=== PATIENT | female | born 1985 | race Caucasian/White ===

== ENCOUNTER 2019-09-02 13:26 | Emergency (ER) | payer OTHER ==
[2019-09-02 13:38] LABS: ABSOLUTE BASOPHILS # (AUTO) 0.1 10^3/uL (0.0-0.2); ABSOLUTE EOSINOPHILS # (AUTO) 0.1 10^3/uL (0.0-0.6); ABSOLUTE LYMPHOCYTES (AUTO) 2.2 10^3/uL (0.5-4.7); ABSOLUTE MONOCYTES (AUTO) 0.4 10^3/uL (0.1-1.4); ABSOLUTE NEUT (AUTO) 4.5 10^3/uL (1.7-8.2); BASOPHILS % (AUTO) 1.5 % (0-2); EOSINOPHILS % (AUTO) 1.6 % (0-6); HEMATOCRIT 44.3 % (36.0-47.0); HEMOGLOBIN 15.5 g/dL (12.0-15.5); LYMPHOCYTES % (AUTO) 30.1 % (13-45); MEAN CORPUSCULAR HEMOGLOBIN 32.8 pg (27.0-33.4); MEAN CORPUSCULAR VOLUME 94 fl (80-97); MONOCYTES % (AUTO) 5.8 % (3-13); PLATELET COUNT 319 10^3/uL (150-450); RED BLOOD COUNT 4.72 10^6/uL (3.72-5.28); RED CELL DISTRIBUTION WIDTH 13.2 % (11.5-14.0); TOTAL CELLS COUNTED % (AUTO) 100 %; WHITE BLOOD COUNT 7.4 10^3/uL (4.0-10.5)
[2019-09-02 13:55] LABS: ALBUMIN 5.2 g/dL (3.5-5.0); ALCOHOL 234 mg/dL (NONE DETECTED); ALKALINE PHOSPHATASE 66 U/L (38-126); ANION GAP 11 (5-19); ASPARTATE AMINO TRANSFERASE 30 U/L (14-36); BILIRUBIN,DIRECT 0.2 mg/dL (0.0-0.4); BILIRUBIN,TOTAL 0.3 mg/dL (0.2-1.3); BLOOD UREA NITROGEN 7 mg/dL (7-20); CALCIUM 9.3 mg/dL (8.4-10.2); CARBON DIOXIDE 29 mmol/L (22-30); CHLORIDE 99 mmol/L (98-107); GLUCOSE 141 mg/dL (75-110); POTASSIUM 4.2 mmol/L (3.6-5.0); TOTAL PROTEIN 8.7 g/dL (6.3-8.2)
[2019-09-02 14:00] LABS: ACETAMINOPHEN < 10 ug/mL (10-30); SALICYLATE < 1.0 mg/dL (2.0-20.0)
--- NOTE | 2019-09-02 14:00 | ER Document Report ---
ED General - General Chief Complaint: Overdose Stated Complaint: POSSIBLE OVERDOSE Time Seen by Provider: 09/02/19 13:34 Notes: 34 year old female brought in by EMS for overdose on Lexapro. Patient states she has had a couple of bad days and just felt completely overwhelmed today and wanted to sleep. She took 2 Lexapro in front of her , who called EMS and insisted that it was a overdose and EMS agreed. Patient states that she was angry that she was told this was an overdose, states she and her were arguing and then she became frustrated so she "tipped the bottle back and just took several pills." Patient states that she thinks she took 6 or 7, states her made her spit out most of them. Patient states that at most she took 9 pills of 10 mg of Lexapro a piece total. Complains of mild nausea otherwise has no other complaints. Patient was switched from Zoloft to Lexapro approximately 2 weeks ago, states s he felt like it was working well until 2 to 3 days ago when she did not feel like it was working anymore. She used to see a counselor, but stopped seeing one in February when they were switched away from the business. Patient also states that she has never had a suicide attempt before. - Related Data Allergies/Adverse Reactions: No Known Allergies Allergy (Verified 09/02/19 14:34) Past Medical History - General Information source: Patient - Social History Smoking Status: Current Every Day Smoker Frequency of alcohol use: Rare Drug Abuse: None Family History: Reviewed & Not Pertinent Review of Systems - Review of Systems Constitutional: No symptoms reported Gastrointestinal: See HPI, Nausea Neurological/Psychological: See HPI, Depression, Suicidal ideation -: Yes All other systems reviewed and negative Physical Exam - Vital signs Vitals: Temp Resp BP Pulse Ox 98.6 F 22 H 143/91 H 93 09/02/19 13:26 09/02/19 13:26 09/02/19 13:26 09/02/19 13:26 Interpretation: Hypertensive - Notes Notes: Poison control advises typical overdose care including 4-hour acetaminophen level, check a salicylate level as well as alcohol level, check urine drug screen and check an EKG. Warned that this could cause seizures, if so treat with benzos. Advises watching for 6 hours unless she took more than 300 mg. Course - Re-evaluation Re-evalutation: 09/02/19 16:22 CBC unremarkable, CMP shows glucose at 141 but this is nonfasting, test is negative, urinalysis shows small blood, 1 RBC, no signs of infection, this is not significant, initial salicylate and acetaminophen levels are undetectable, urine drug screen is negative, alcohol level is 234, EKG does not have any ischemic changes or concerning delays. Patient's provided some additional concerning information that makes behavioral health and me concerned that this patient is high risk. Patient will be made a full involuntary commitment. Repeat acetaminophen level will be checked at the 4-hour italo. Repeat EKG will be checked at the 6-hour italo. So long as this is all unchanged patient will be medically cleared at that point. 09/02/19 18:04 Repeat EKG does not show any progressive prolongation of the QT, acetaminophen level is normal. Patient is medically cleared. - Vital Signs Vital signs: Temp Pulse Resp BP Pulse Ox 98.6 F 22 H 133/89 H 96 09/02/19 13:26 09/02/19 17:00 09/02/19 17:00 09/02/19 17:00 - Laboratory Result Diagrams: 09/02/19 12:55 09/02/19 12:55 Laboratory results interpreted by me: 09/02/19 09/02/19 09/02/19 12:55 13:55 16:52 Glucose 141 H Total Protein 8.7 H Albumin 5.2 H Urine Blood SMALL H Salicylates < 1.0 L Acetaminophen < 10 L < 10 L - EKG Interpretation by Me Additional EKG results interpreted by me: 09/02/19 14:00 EKG shows sinus rhythm at a rate of 86, borderline left axis deviation, normal intervals, no QT prolongation, no ST segment elevations or depressions, no T wave inversions per my interpretation. 09/02/19 18:04 Repeat EKG shows sinus rhythm at a rate of 90, borderline left axis deviation, no ST segment elevation or depression, no T wave inversions normal intervals, no QT prolongation per my interpretation. Discharge - Discharge Clinical Impression: Overdose Qualifiers: Encounter type: initial encounter Injury intent: intentional self-harm Qualified Code(s): T50.902A - Poisoning by unspecified drugs, medicaments and biological substances, intentional self-harm, initial encounter Suicide attempt by drug ingestion Qualifiers: Encounter type: initial encounter Qualified Code(s): T50.902A - Poisoning by unspecified drugs, medicaments and biological substances, intentional self-harm, initial encounter Condition: Stable Disposition: PSYCH HOSP/UNIT
[2019-09-02 14:24] LABS: APPEARANCE,URINE CLEAR; BILIRUBIN,URINE NEGATIVE (NEGATIVE); COLOR,URINE COLORLESS; GLUCOSE, URINE NEGATIVE (NEGATIVE); KETONES,URINE NEGATIVE (NEGATIVE); LEUKOCYTE ESTERASE,URINE NEGATIVE (NEGATIVE); NITRITE,URINE NEGATIVE (NEGATIVE); PROTEIN,URINE NEGATIVE (NEGATIVE); URINE SPECIFIC GRAVITY 1.001; UROBILINOGEN,URINE NEGATIVE mg/dL (<2.0)
[2019-09-02 14:41] LABS: URINE AMPHETAMINES SCREEN NEGATIVE; URINE BARBITURATES SCREEN NEGATIVE; URINE BENZODIAZEPINES SCREEN NEGATIVE; URINE COCAINE SCREEN NEGATIVE; URINE MARIJUANA (THC) SCREEN NEGATIVE; URINE METHADONE SCREEN NEGATIVE; URINE PHENCYCLIDINE SCREEN NEGATIVE
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
--- NOTE | 2019-09-02 19:23 | EKG REPORT ---
SEVERITY:- BORDERLINE ECG - SINUS RHYTHM BORDERLINE LEFT AXIS DEVIATION BORDERLINE PROLONGED QT INTERVAL : Confirmed by: Waldo Ambriz MD 02-Sep-2019 19:22:30
--- NOTE | 2019-09-02 19:23 | EKG REPORT ---
SEVERITY:- OTHERWISE NORMAL ECG - SINUS RHYTHM BORDERLINE LEFT AXIS DEVIATION : Confirmed by: Waldo Ambriz MD 02-Sep-2019 19:22:43
--- NOTE | 2019-09-02 19:23 | EKG REPORT ---
SEVERITY:- OTHERWISE NORMAL ECG - SINUS RHYTHM BORDERLINE LEFT AXIS DEVIATION : Confirmed by: Waldo Ambriz MD 02-Sep-2019 19:22:58
[2019-09-02] MEDS ORDERED: NORMAL SALINE 1000 ML 1,000 ML IV ONE (22:35)
--- NOTE | 2019-09-03 01:40 | ER Document Report ---
Doctor's Note Notes: 09/03/19 01:38 Care of this patient was turned over to me during my shift. In short, this patient is suicidal, intoxicated. She overdosed on Lexapro. Repeat EKG was performed which did show a lengthening of her QT interval. Initial repeat EKG showed a QTC of 498, no other acute changes. Repeat EKG performed at 2100 sh owed a borderline prolonged QT at 502. Yet another EKG was performed at 1 and oh 5 in the morning on September 02, and her QT interval was shortening again, QTC down to 493. Given this resolution of this lengthening of her QT interval, she is medically cleared at this time. She is awaiting bed tomorrow in a psychiatric facility.
--- NOTE | 2019-09-03 07:31 | PSYCHOLOGICAL NOTE ---
Psych Note - Psych Note Date seen by psych provider: 09/03/19 Time seen by psych provider: 07:15 Psych Note: Check in conducted with patient. Patient states she is doing "much better." Patient states this event was a "wake up call." Patient expressed remorse, embarrassment, and shame regarding this event and her ETOH abuse. Patient stated "I thought I had it under control," but being here makes me realize that I did not. Patient was informed of transfer to [facility]. Patient was informed of transfer process. Patient's was notified at 07:23. Patient was encouraged to truly engage in this treatment opportunity.
--- NOTE | 2019-09-03 08:47 | ER Document Report ---
Doctor's Note Notes: 09/03/19 08:46 34-year-old female brought in for overdose on alcohol and trazodone. Patient's QTc interval has been improving. She has no physical complaints at this time. She has been evaluated by the psychiatric team and is awaiting transfer to [facility].
--- NOTE | 2019-09-03 10:05 | EKG REPORT ---
SEVERITY:- BORDERLINE ECG - SINUS RHYTHM BORDERLINE PROLONGED QT INTERVAL : Confirmed by: Waldo Ambriz MD 03-Sep-2019 10:04:49
--- NOTE | 2019-09-03 10:05 | EKG REPORT ---
SEVERITY:- BORDERLINE ECG - SINUS RHYTHM BORDERLINE PROLONGED QT INTERVAL : Confirmed by: Waldo Ambriz MD 03-Sep-2019 10:04:59
[2019-09-03 12:10] VITALS: BP 134/88
--- NOTE | 2019-09-03 15:55 | EKG REPORT ---
SEVERITY:- OTHERWISE NORMAL ECG - SINUS RHYTHM BORDERLINE LEFT AXIS DEVIATION : Confirmed by: Waldo Ambriz MD 03-Sep-2019 15:54:40
--- NOTE | 2019-09-03 16:04 | EKG REPORT ---
SEVERITY:- ABNORMAL ECG - SINUS RHYTHM NEW ST-T INVERSION ANTERIOR LEADS, COMPARED TO LAST EKG AT 1:05 AM CLINICAL CORRELATION NEEDED. ER CHARGE NURSE NOTIFIED. TO CALL HOSPITAL WHICH PT WAS TRANSFERRED TO. : Confirmed by: Waldo Ambriz MD 03-Sep-2019 16:04:01
== END 2019-09-03 12:14 ==
LOC: ER 13:26
DX: T43.222A Poisoning by selective serotonin reuptake inhibitors, intentional self-harm, initial encounter (principal); R11.0 Nausea; Y92.009 Unspecified place in unspecified non-institutional (private) residence as the place of occurrence of the external cause; F32.9 Major depressive disorder, single episode, unspecified; F10.129 Alcohol abuse with intoxication, unspecified; Y90.7 Blood alcohol level of 200-239 mg/100 ml; F17.200 Nicotine dependence, unspecified, uncomplicated; R31.9 Hematuria, unspecified
CPT/HCPCS: 93005 ×2; 99285; 96360; 36415; 80307 ×4; 84703; 85025; 80053; 81001; 93010 ×2; J7030